=== PATIENT | female | born 1995 | race Caucasian/White ===

== ENCOUNTER 2021-03-19 13:30 | Emergency (ER) | payer MEDICAID ==
[~2021-03-19] VITALS: Ht 170.1 cm; Wt 65.8 kg
== END 2021-03-19 17:11 | disposition home or self-care (01) ==
LOC: ED 13:30
DX: S09.90XA Unspecified injury of head, initial encounter (principal); M54.2 Cervicalgia; W22.8XXA Striking against or struck by other objects, initial encounter; Y93.41 Activity, dancing; Y92.89 Other specified places as the place of occurrence of the external cause; Y99.8 Other external cause status

== ENCOUNTER 2021-05-02 15:17 | Emergency (ER) | payer OTHER ==
[~2021-05-02] VITALS: Wt 68.0 kg
[2021-05-02] MEDS ORDERED: CLONAZEPAM0.5 M2 PO (15:35)
[2021-05-02] MEDS ORDERED: METHYLPHENIDATE54 M3 PO (15:36)
[2021-05-02] MEDS ORDERED: CITALOPRAM HYDR40 MG PO (15:36)
== END 2021-05-02 17:58 | disposition home or self-care (01) ==
LOC: ED 15:17
DX: S06.0X0A Concussion without loss of consciousness, initial encounter (principal); R42 Dizziness and giddiness; Z79.899 Other long term (current) drug therapy; W18.09XA Striking against other object with subsequent fall, initial encounter; Y93.89 Activity, other specified; Y92.89 Other specified places as the place of occurrence of the external cause; Y99.8 Other external cause status